=== PATIENT | female | born 1955 | race Caucasian/White ===

== ENCOUNTER 2019-02-23 09:11 | Outpatient (CLI) | payer MEDICARE ==
--- NOTE | 2019-02-23 10:53 | MRI ---
EXAM: MRI of the abdomen without and with contrast COMPARISON: None HISTORY: Right upper quadrant abdominal pain TECHNIQUE: Multiplanar multi sequence MR images were taken of the abdomen without and with IV contras t. [An MRCP was performed.] FINDINGS: Liver: Scattered cysts in both lobes measuring up to 2.3 cm in size. Mild intrahepatic biliary dilata tion in the left lobe. No abnormal enhancement. Gallbladder: Absent Common bile duct: Enlarged measuring 11 mm without filling defect. This tapers at the ampulla of Vate r. Adrenal glands: Unremarkable. Kidneys: Bilateral cysts measuring up to 2.6 cm in size. No abnormal areas of enhancement. Spleen: Unremarkable. Pancreas: Unremarkable. No abnormal enhancement. Retroperitoneum: No enlarged lymph nodes Bones: No marrow signal abnormality. IMPRESSION: 1. Enlargement of the biliary tree may be a reservoir effect from prior cholecystectomy 2. Hepatic cysts 3. Renal cysts
== END 2019-02-23 09:12 | disposition home or self-care (01) ==
LOC: BICMRI 09:11
PROVIDERS: ATTEND Internal Medicine Gastroenterology
DX: R10.11 Right upper quadrant pain (principal); K83.8 Other specified diseases of biliary tract; N28.1 Cyst of kidney, acquired; K76.89 Other specified diseases of liver; Z90.49 Acquired absence of other specified parts of digestive tract
CPT/HCPCS: 74183; 82565

== ENCOUNTER 2021-07-02 09:24 | Outpatient (CLI) | payer MEDICARE, OTHER | END 2021-07-02 09:25 | disposition home or self-care (01) | LOC: BICMAMMO 09:24 | DX: Z13.820 Encounter for screening for osteoporosis (principal); M85.89 Other specified disorders of bone density and structure, multiple sites | CPT/HCPCS: 77080 ==

== ENCOUNTER 2022-03-29 10:08 | Outpatient (CLI) | payer MEDICARE, OTHER | END 2022-03-29 10:09 | disposition home or self-care (01) | LOC: BICRAD 10:08 | PROVIDERS: ATTEND Nurse Practitioner Family | DX: M25.551 Pain in right hip (principal) ==

== ENCOUNTER 2022-07-29 10:19 | Outpatient (CLI) | payer MEDICARE, OTHER | END 2022-07-29 10:20 | disposition home or self-care (01) | LOC: ULT 10:19 | PROVIDERS: ATTEND Nurse Practitioner Family | DX: R10.9 Unspecified abdominal pain (principal); R35.0 Frequency of micturition; R82.79 Other abnormal findings on microbiological examination of urine; N28.1 Cyst of kidney, acquired | CPT/HCPCS: 36415; 76770; 80053; 83036; 84443; 85025; 87086; 87480; 87510; 87660 ==

== ENCOUNTER 2022-11-08 08:40 | Emergency (ER) | payer MEDICARE, OTHER ==
[2022-11-08] MEDS ORDERED: Aspirin Chewable 81 MG TAB ONE (09:20)
[2022-11-08 09:44] LABS: #Basophils 0.1 thou/uL (0.0-0.2); #Eosinphils 0.5 thou/uL (0.0-0.7); #Monocytes 0.7 thou/uL (0.11-0.59); #Neutrophils 3.3 thou/uL (1.40-6.50); %Basophils 0.9 % (0.0-1.0); %Eosinophils 8.6 % (0.0-10.0); %Lymphocytes 18.4 % (21.0-51.0); %Monocytes 12.3 % (0.0-10.0); %Neutrophils 58.2 % (42.0-75.0); Hematocrit 41.5 % (36.0-47.0); Hemoglobin 13.9 g/dL (12.0-16.0); Mean Corpuscular HGB CONC 33.5 g/dL (32.0-36.0); Mean Corpuscular Hemoglobin 28.9 pg (27.0-31.0); Mean Corpuscular Volume 86.3 fl (78.0-98.0); Mean Platelet Volume 8.7 fL (7.4-10.4); Platelet Count 257 10x3/uL (130-400); RBC Distribution Width 12.6 % (11.5-14.5); Red Blood Cell (RBC) Count 4.81 mill/uL (4.20-5.40); White Blood Cell (WBC) Count 5.6 10x3/uL (4.8-10.8)
[2022-11-08 10:08] LABS: Troponin I Less than 0.010 ng/mL (< 0.028)
[2022-11-08 10:10] LABS: ALT (SGPT) 21 U/L (8-55); AST (SGOT) 24 U/L (5-34); Albumin 4.2 g/dL (3.4-4.8); Alkaline Phosphatase 72 U/L (40-110); Anion Gap 11 mmol/L (10-20); BUN (Urea Nitrogen) 13 mg/dL (9.8-20.1); Bilirubin, Total 0.6 mg/dL (0.2-1.2); Calc. Creatinine Clearance 0 mL/min (70-130); Calcium 9.9 mg/dL (7.8-10.44); Carbon Dioxide 27 mmol/L (23-31); Chloride 104 mmol/L (98-107); Estimated GFR 66; Globulin 2.3 g/dL (2.4-3.5); Glucose 104 mg/dL (80-115); Potassium 3.3 mmol/L (3.5-5.1); Protein, Total 6.5 g/dL (5.8-8.1); Sodium 139 mmol/L (136-145)
== END 2022-11-08 14:03 | disposition short-term general hospital (02) ==
LOC: ERS 08:40
DX: R07.9 Chest pain, unspecified (principal); K21.9 Gastro-esophageal reflux disease without esophagitis; E78.5 Hyperlipidemia, unspecified; I10 Essential (primary) hypertension; Z79.899 Other long term (current) drug therapy
CPT/HCPCS: 36415; 71045; 80053; 83880; 84484; 85025; 93005

== ENCOUNTER 2022-11-17 09:49 | Outpatient (CLI) | payer MEDICARE, OTHER | END 2022-11-17 09:50 | disposition home or self-care (01) | LOC: BICMRI 09:49 | PROVIDERS: ATTEND Nurse Practitioner Family | DX: R51.9 Headache, unspecified (principal); R53.1 Weakness | CPT/HCPCS: 70551 ==

== ENCOUNTER 2022-12-09 11:00 | Outpatient (CLI) | payer MEDICARE, OTHER | END 2022-12-09 11:01 | disposition home or self-care (01) | LOC: BICULT 11:00 | PROVIDERS: ATTEND Internal Medicine Gastroenterology | DX: R10.11 Right upper quadrant pain (principal); R14.0 Abdominal distension (gaseous); K59.09 Other constipation; Q44.6 Cystic disease of liver; N28.1 Cyst of kidney, acquired; Z90.49 Acquired absence of other specified parts of digestive tract | CPT/HCPCS: 76700 ==

== ENCOUNTER 2023-07-26 13:11 | Outpatient (CLI) | payer MEDICARE, OTHER | END 2023-07-26 13:12 | disposition home or self-care (01) | LOC: BICMAMMO 13:11 | PROVIDERS: ATTEND Nurse Practitioner Family | DX: Z12.31 Encounter for screening mammogram for malignant neoplasm of breast (principal); Z80.3 Family history of malignant neoplasm of breast | CPT/HCPCS: 77063; 77067 ==